=== PATIENT | male | born 1995 | race Caucasian/White ===

== ENCOUNTER 2017-09-11 01:21 | Emergency (ER) | payer SELFPAY ==
--- NOTE | 2017-09-11 07:09 | RAD ---
RADIOGRAPH CHEST 1 VIEW: HISTORY: 22-year-old male with left-sided chest pain without trauma. FINDINGS: There are no air space densities, pulmonary edema, pneumothorax, or cardiomegaly. The lateral costop hrenic angles are sharp. IMPRESSION: No acute cardiopulmonary findings. jn [] POS: OFF
--- NOTE | 2017-09-12 12:11 | EKG ---
Test Reason : Blood Pressure : / mmHG Vent. Rate : 084 BPM Atrial Rate : 084 BPM P-R Int : 138 ms QRS Dur : 096 ms QT Int : 352 ms P-R-T Axes : 011 072 026 degrees QTc Int : 415 ms Normal sinus rhythm with sinus arrhythmia Normal ECG Confirmed by STACEY MCKEON, JENNA ([id number]), editorial manager ZAY MAYES ([id number]) on 09/12/2017 12:10:29 PM Referred By: Confirmed By:JENNA IBARRA MD
== END 2017-09-11 02:54 | disposition home or self-care (01) ==
LOC: ERS 01:21
DX: R09.1 Pleurisy (principal); F17.210 Nicotine dependence, cigarettes, uncomplicated
CPT/HCPCS: 71045; 93005

== ENCOUNTER 2018-04-07 21:16 | Emergency (ER) | payer SELFPAY ==
[2018-04-07] MEDS ORDERED: Ketorolac Tromethamine 60 MG/2 ML VIAL ONE (22:16)
--- NOTE | 2018-04-07 22:24 | RAD ---
LUMBAR SPINE THREE VIEWS: 04/07/18 HISTORY: Low back pain. FINDINGS: There is a transitional vertebrae at the lumbosacral junction. Pedicles are intact. Vertebral body he ights and AP alignment are maintained. Leftward convex rotatory scoliotic curvature has progressed si nce the 2016 exam. No acute fracture or dislocation. IMPRESSION: Progressing leftward convex rotatory scoliotic curvature of the lumbar spine. No evidence of compress ion fracture. POS: [facility]VI
== END 2018-04-07 22:59 | disposition home or self-care (01) ==
LOC: ERS 21:16
DX: S39.012A Strain of muscle, fascia and tendon of lower back, initial encounter (principal); Z71.6 Tobacco abuse counseling; F41.9 Anxiety disorder, unspecified; F17.210 Nicotine dependence, cigarettes, uncomplicated; X50.9XXA Other and unspecified overexertion or strenuous movements or postures, initial encounter
CPT/HCPCS: 72100; 96372; 99406; J1885

== ENCOUNTER 2020-07-02 21:54 | Emergency (ER) | payer SELFPAY | END 2020-07-02 23:03 | disposition home or self-care (01) | LOC: ERS 21:54 | DX: R11.2 Nausea with vomiting, unspecified (principal); F41.9 Anxiety disorder, unspecified; F17.210 Nicotine dependence, cigarettes, uncomplicated | CPT/HCPCS: 99283 ==